=== PATIENT | male | born 1980 | race Caucasian/White ===

== ENCOUNTER 2018-12-10 13:47 | Emergency (ER) | payer OTHER ==
[2018-12-10] MEDS ORDERED: Diphtheria,Pertussis(Acell),Tetanus Vaccine 0.5 ML SDV IM ONE (14:03)
[2018-12-10] MEDS ORDERED: Bacitracin Oint 1 GM U/D Packet TOP ONE (14:03)
--- NOTE | 2018-12-10 14:13 | EDM.PDOC ---
ED HPI GENERAL MEDICAL PROBLEM - General Chief Complaint: Laceration Stated Complaint: FISH HOOK IN MIDDLE FINGER RT HAND Time Seen by Provider: 12/10/18 14:00 Source of Information: Reports: Patient History Limitations: Reports: No Limitations - History of Present Illness INITIAL COMMENTS - FREE TEXT/NARRATIVE: 38 yo male [place] here for fish hook removal from finger. Needs a tetanus booster. Onset: Today Onset Date: 12/10/18 Onset Time: 12:20 Duration: Minutes:, Constant Location: Reports: Upper Extremity, Right Quality: Reports: Dull Severity: Mild Improves with: Reports: Rest Worsens with: Reports: Other (bumping the hook) Context: Reports: Trauma Associated Symptoms: Reports: No Other Symptoms Treatments DIRECTOR OF PHYSICAL SECURITY: Reports: Other (see below) (none) - Related Data Allergies Allergy/AdvReac Type Severity Reaction Status Date / Time Sulfa (Sulfonamide Allergy Swollen Verified 12/10/18 14:04 Antibiotics) Eyes Home Meds: Home Meds Omeprazole 20 mg PO DAILY 12/10/18 [History] ED ROS GENERAL - Review of Systems Review Of Systems: See Below Constitutional: Reports: No Symptoms Skin: Reports: Wound (R middle finger single snow hook imbedded in distal pad) Neurological: Reports: No Symptoms ED EXAM, SKIN/RASH Exam: See Below Exam Limited By: No Limitations General Appearance: Alert, WD/WN, No Apparent Distress Extremities: Other (fishhook in R middle finger distally. No active bleeding. Tip of hook is slightly protruding.) Neurological: Alert, Oriented, CN II-XII Intact, Normal Cognition, No Motor/ Sensory Deficits Skin: Warm, Dry, Normal Color, No Rash, Wound/Incision (puncture of R middle finger distally.). No: Intact Location, Skin: Upper Extremity, Right Characteristics: Other (puncture) Associated features: Tenderness ED SKIN PROCEDURES - Foreign Body Removal Consent Obtained:: Patient Performing Doctor:: Wesley Gary Foreign Body Other Location Comment:: [place] Anesthesia Type: Local (1.5 ml of 1% lidocaine) Complications:: No Comments:: pulled through from tip using a needle nose pliers. Bacitracin and dressing per RN. Course - Vital Signs Last Recorded V/S: Last Vital Signs Temp 36.9 C 12/10/18 14:02 Pulse 78 12/10/18 14:02 Resp 14 12/10/18 14:02 BP 151/99 H 12/10/18 14:02 Pulse Ox 92 L 12/10/18 14:02 - Orders/Labs/Meds Orders: Active Orders 24 hr Category Date Time Status Vaccines to be Administered [RC] PER UNIT ROUTINE Care 12/10/18 14:03 Active Lidocaine 1% [Xylocaine-MPF 1%] Med 12/10/18 14:05 Once 5 ml INJECT ONETIME ONE Medication Orders Lidocaine HCl (Xylocaine-Mpf 1%) 5 ml INJECT ONETIME ONE Stop: 12/10/18 14:06 Meds: Medications Generic Name Dose Route Start Last Admin Trade Name Freq PRN Reason Stop Dose Admin Lidocaine HCl 5 ml 12/10/18 14:05 Xylocaine-Mpf 1% INJECT 12/10/18 14:06 ONETIME ONE Discontinued Medications Generic Name Dose Route Start Last Admin Trade Name Freq PRN Reason Stop Dose Admin Bacitracin 1 dose 12/10/18 14:03 Bacitracin Oint 1 Gm TOP 12/10/18 14:04 ONETIME ONE Diphtheria/Tetanus/Acell Pertussis 0.5 ml 12/10/18 14:03 Adacel IM 12/10/18 14:04 .ONCE ONE Departure - Departure Time of Disposition: 14:17 Disposition: Home, Self-Care 01 Condition: Good Clinical Impression: Fish hook injury of middle finger Qualifiers: Encounter type: initial encounter Laterality: right Qualified Code(s): S69.91XA - Unspecified injury of right wrist, hand and finger(s), initial encounter - Discharge Information *PRESCRIPTION DRUG MONITORING PROGRAM REVIEWED*: No *COPY OF PRESCRIPTION DRUG MONITORING REPORT IN PATIENT [place]: No Referrals: PCP,None [Primary Care Provider] - Additional Instructions: Acetaminophen as needed for pain relief. Wash hand with soap and water often. Recheck for signs of infection. - My Orders Last 24 Hours: My Active Orders 12/10/18 14:03 Vaccines to be Administered [RC] PER UNIT ROUTINE 12/10/18 14:05 Lidocaine 1% [Xylocaine-MPF 1%] 5 ml INJECT ONETIME ONE - Assessment/Plan Last 24 Hours: My Active Orders 12/10/18 14:03 Vaccines to be Administered [RC] PER UNIT ROUTINE 12/10/18 14:05 Lidocaine 1% [Xylocaine-MPF 1%] 5 ml INJECT ONETIME ONE
== END 2018-12-10 14:22 | disposition home or self-care (01) ==
LOC: JP.ED 13:47
DX: S61.232A Puncture wound without foreign body of right middle finger without damage to nail, initial encounter (principal); Z88.2 Allergy status to sulfonamides; Z23 Encounter for immunization; W45.8XXA Other foreign body or object entering through skin, initial encounter
CPT/HCPCS: 90471; 90715; 99282; J2001